=== PATIENT | male | born 1945 | race Caucasian/White ===

== ENCOUNTER 2021-02-04 05:40 | Day surgery (SDC) | payer MEDICARE, BC ==
[2021-02-04] VITALS (10 sets, daily range): BP systolic 106–126; BP diastolic 62–73
[~2021-02-04] VITALS: Ht 188 cm; Wt 104.4 kg
[~2021-02-04 05:40] MED LIST: ASCO1TAB13 PO; BUDE180A INH; COU1T PO; DIPH-435 PO; FOCUS FACTOR PO; MELA5TAB12 PO; METO50TA16 PO; cefazolin/dext.iso 2gm/50ml 50 ML IV ONE; famotidine 20mg tablet PO ONE; ringers solution, lacted 1,000 ML IV SCH
[2021-02-04 07:26] LABS: CLARITY,URINE CLEAR (Clear); COLOR,URINE YELLOW (Yellow); GLUCOSE, URINE NEGATIVE (Neg); KETONES,URINE NEGATIVE (Neg); LEUKOCYTE ESTERASE ,URINE NEGATIVE (Neg); NITRITES, URINE NEGATIVE (Neg); OCCULT BLOOD,URINE NEGATIVE (Neg); PH,URINE 7.5 (4.8-8.0); PROTEIN,URINE NEGATIVE (Neg); UA COLLECTION TYPE NON-SPECIFIED; UROBILINOGEN,URINE 0.2 E.U/dL (0.2-1.0)
[2021-02-04] MEDS ORDERED: LIDOcaine 1% 30ml preserv. free vial ONE (07:35)
[2021-02-04 07:43] LABS: EOSINOPHILS # (AUTO) 0.1 X10'3 (0-0.9); LYMPHOCYTES # (AUTO) 0.6 X10'3 (1.1-4.8); PRE OP HEMATOCRIT 38.5 % (42.0-52.0)
[2021-02-04 07:45] LABS: BASOPHILS % (AUTO) 0.7 % (0-1); LYMPHOCYTES % (AUTO) 30.2 % (21-51); MEAN CORPUSCULAR HEMOGLOBIN 28.1 PG (27.0-31.0); MEAN CORPUSCULAR HGB CONC 34.7 g/dL (33.0-36.5); MEAN CORPUSCULAR VOLUME 81.1 FL (78-98); MONOCYTES # (AUTO) 0.2 X10'3 (0-0.9); MONOCYTES % (AUTO) 11.4 % (2-12); NEUTROPHILS # (AUTO) 1.1 X10'3 (1.8-7.7); NEUTROPHILS % (AUTO) 53.7 % (42-75); PRE OP HEMOGLOBIN 13.3 g/dL (14.0-17.9); PRE OP PLATELET COUNT 178 X10'3 (140-440); RED BLOOD COUNT 4.75 X10'6 (4.70-6.10); RED CELL DISTRIBUTION WIDTH 16.4 % (11.5-14.5)
[2021-02-04 07:51] LABS: ALBUMIN 3.4 G/DL (3.4-5.0); ALBUMIN/GLOBULIN RATIO 0.8 (1.1-1.5); ALKALINE PHOSPHATASE 68 IU/L (46-116); BLOOD UREA NITROGEN 12 MG/DL (7-18); BUN/CREATININE RATIO 14.8 (5.4-32.0); CALCIUM 9.6 MG/DL (8.5-10.1); CHLORIDE 107 MMOL/L (99-107); CREATININE 0.81 MG/DL (0.60-1.10); PRE OP ALT 27 U/L (30-65); PRE OP ANION GAP 8 (8-16); PRE OP AST 41 U/L (10-37); PRE OP BILIRUB, TOTAL 1.4 MG/DL (0.0-1.0); PRE OP GLUCOSE 93 MG/DL (70-104); PRE OP POTASSIUM 4.4 MMOL/L (3.4-5.1); PRE OP SODIUM 143 MMOL/L (135-145); TOTAL CARBON DIOXIDE 27.9 MMOL/L (24-32); TOTAL PROTEIN 7.6 G/DL (6.4-8.2); eGFR > 90 ML/MIN
[2021-02-04 08:08] LABS: PRE OP PROTIME 17.2 SECONDS (9.0-12.0)
[2021-02-04 08:12] LABS: PRE OP INR 1.7 INR
[2021-02-04] MEDS ORDERED: midazolam 1 mg/ML 2ml injection ONE (09:08)
[2021-02-04] MEDS ORDERED: fentaNYL/PF 50MCG/1 ML 2ML syringe ONE (09:08)
[2021-02-04] MEDS ORDERED: propofol inj 20 ML IV ONE (09:08)
--- NOTE | 2021-02-04 10:09 | NUR ---
Received from OR via [facility] IN STABLE CONDITION , accompanied by Anesthesiologist and PLANT SAFETY LEADER report given by PLANT SAFETY LEADER AND Anesthesiolgist. Addendum: 02/04/21 at 1105 by Arlin Gregorio RN Amended: Links added.
[2021-02-04 10:13] LABS: TOTAL CELLS COUNTED 100
[2021-02-04 10:14] LABS: PLATELET ESTIMATE NORMAL
[2021-02-04] MEDS ORDERED: proCHLORperazine 10 MG/2 ml inj IV PRN (10:20)
[2021-02-04] MEDS ORDERED: morphine 2 MG/ML inj. syringe IV PRN (10:20)
[2021-02-04] MEDS ORDERED: ringers solution, lacted 1,000 ML IV SCH (10:20)
[2021-02-04] MEDS ORDERED: morphine 4 MG/ML inj SYRINge IV PRN (10:20)
[2021-02-04] MEDS ORDERED: meperidine/PF 25mg/ml syringe IV PRN ×3 (10:20)
[2021-02-04] MEDS ORDERED: ondansetron/PF 4mg/2ml inj IV PRN (10:20)
--- NOTE | 2021-02-04 11:39 | NUR ---
I HAVE REVIEWED D/C INSTRUCTIONS WITH PATIENT AND THEY HAVE VERBALIZED UNDERSTANDING OF INSTRUCTIONS. PATIENT D/C HOME WITH ALL BELONGINGS AND FAMILY GAVE TRANSPORT Addendum: 02/04/21 at 1202 by Arlin Gregorio RN Amended: Links added.
== END 2021-02-04 11:39 | disposition home or self-care (01) ==
LOC: PAS 05:40
PROVIDERS: ATTEND Surgery
DX: Z45.010 Encounter for checking and testing of cardiac pacemaker pulse generator [battery] (principal); I25.10 Atherosclerotic heart disease of native coronary artery without angina pectoris; I10 Essential (primary) hypertension; G47.30 Sleep apnea, unspecified; M19.90 Unspecified osteoarthritis, unspecified site; J44.9 Chronic obstructive pulmonary disease, unspecified; I48.91 Unspecified atrial fibrillation; E66.9 Obesity, unspecified; Z68.28 Body mass index [BMI] 28.0-28.9, adult; Z85.46 Personal history of malignant neoplasm of prostate; Z20.822 Contact with and (suspected) exposure to COVID-19; Z79.01 Long term (current) use of anticoagulants; Z79.899 Other long term (current) drug therapy; Z90.79 Acquired absence of other genital organ(s); Z98.890 Other specified postprocedural states
CPT/HCPCS: 33228; 36415; 71045; 80053; 81003; 82948; 85025; 85610; 85730; 87635; 93005; C1785; C9803; J2001; J2250; J2704; J3010; J7120; Z7506; Z7512; 85007; A4215; A4565; A4618; A6258; A7000

== ENCOUNTER 2021-04-03 14:56 | Emergency (ER) | payer MEDICARE, BC ==
[~2021-04-03] VITALS: Ht 190.5 cm; Wt 104.5 kg
[~2021-04-03 14:56] MED LIST changes: -cefazolin/dext.iso 2gm/50ml 50 ML IV ONE; -famotidine 20mg tablet PO ONE; -ringers solution, lacted 1,000 ML IV SCH
[2021-04-03 15:36] VITALS: BP 103/64
[2021-04-03] MEDS ORDERED: HYDR-3965 PO (15:46)
== END 2021-04-03 16:20 | disposition home or self-care (01) ==
LOC: ER 14:57
DX: R00.2 Palpitations (principal); T40.425A Adverse effect of tramadol, initial encounter; I48.91 Unspecified atrial fibrillation; Z79.899 Other long term (current) drug therapy; Z79.01 Long term (current) use of anticoagulants; Y92.89 Other specified places as the place of occurrence of the external cause
CPT/HCPCS: 93005; 99283